=== PATIENT | female | born 1945 | race Caucasian/White ===

== ENCOUNTER → 2017-05-14 | Outpatient (CLI) | payer MEDICARE, OTHER ==
[~2017-05-14] MED LIST: ALPR-1 PO; ATOR20TA22 PO; DIOVAN PO; GLIM1TAB25 PO; IBU800 PO; LEVO-3 PO; LOR5 PO; MELO-149 PO; METF-410 PO; MULT-1 PO; VALS1TAB67 PO
--- NOTE | 2017-05-14 09:20 | EKG ---
FACILITY: [facility] - [place], [place] PATIENT NAME: NAZARIO HARVEY : [id number] MR: [id number] V: [id number] EXAM DATE: ORDERING PHYSICIAN: AMANDA LOMELI TECHNOLOGIST: LANEY Whitehead Reason : PREOP Blood Pressure : / mmHG Vent. Rate : 087 BPM Atrial Rate : 087 BPM P-R Int : 158 ms QRS Dur : 086 ms QT Int : 386 ms P-R-T Axes : 081 078 089 degrees QTc Int : 464 ms Normal sinus rhythm No ST abnormalities Large T waves diffusely, of unclear significance No previous ECGs available Confirmed by VINOD DAVENPORT ([id number]) on 05/14/2017 5:07:57 PM Referred By: ARMANI Confirmed By:VINOD DAVENPORT
== END ==
LOC: RESP 09:03
PROVIDERS: ATTEND Orthopaedic Surgery
DX: Z01.812 Encounter for preprocedural laboratory examination (principal); Z01.810 Encounter for preprocedural cardiovascular examination; M25.512 Pain in left shoulder; E11.9 Type 2 diabetes mellitus without complications; I10 Essential (primary) hypertension; E03.9 Hypothyroidism, unspecified; R41.9 Unspecified symptoms and signs involving cognitive functions and awareness
CPT/HCPCS: 93005

== ENCOUNTER → 2017-06-25 | Outpatient (CLI) | payer MEDICARE, OTHER ==
[~2017-06-25] MED LIST changes: +MULT-27 PO; +PRAM0.1225 PO
[2017-06-25 17:04] LABS: PLATELET COUNT, AUTOMATED 191 K/uL (150-450)
== END ==
LOC: LAB 16:36
PROVIDERS: ATTEND Family Medicine
DX: E61.1 Iron deficiency (principal)
CPT/HCPCS: 36415; 82728; 85025

== ENCOUNTER → 2017-07-24 | Outpatient (CLI) | payer MEDICARE, OTHER | LOC: RESP 20:57 | PROVIDERS: ATTEND Family Medicine | DX: Z02.9 Encounter for administrative examinations, unspecified (principal) ==

== ENCOUNTER → 2017-12-27 | Outpatient (CLI) | payer MEDICARE, OTHER ==
[~2017-12-27] MED LIST changes: -METF-410 PO; +METF-411 PO
--- NOTE | 2017-12-27 11:53 | RADIOLOGY IMAGING REPORT ---
FAC[place] [facility] [place]IENT NAME: NAZARIO HARVEY : [id number] MR: [id number] V: [id number] EXAM DATE: [id number] ORDERING PHYSICIAN: EPÑA CARLSON TECHNOLOGIST: Traci Olmstead PROCEDURE:BILATERAL DIGITAL SCREENING MAMMOGRAM WITH CAD ASSISTED INTERPRETATION & 3D TOMOSYNTHESIS COMPARISON:Prior mammograms 05/15/12. INDICATIONS:SCREENING/BREAST REDUCTION SURGERY FINDINGS: There is scattered fibroglandular tissue. Multiple bilateral round scattered benign microcalcifications are present which have increased in number. No suspicious mass, microcalcification or architectural distortion. No significant change when compared to prior. DIAGNOSTIC CATEGORY 2--BENIGN FINDING. RECOMMENDATIONS: ROUTINE MAMMOGRAM AND CLINICAL EVALUATION. IMPRESSION: BIRADS 2: Benign finding. Normal exam. Dictated by: Eddie Justice on 12/27/2017 at 11:05 Transcribed by: LUH on 12/27/2017 at 11:14 Approved by: Eddie Justice on 12/27/2017 at 11:52 [facility]
== END ==
LOC: MAMO 04:59
PROVIDERS: ATTEND Surgery
DX: Z12.31 Encounter for screening mammogram for malignant neoplasm of breast (principal); R92.1 Mammographic calcification found on diagnostic imaging of breast
CPT/HCPCS: 77063; 77067

== ENCOUNTER → 2018-01-10 | Outpatient (CLI) | payer MEDICARE, OTHER ==
[~2018-01-10] MED LIST changes: -METF-411 PO; +METF-450 PO
--- NOTE | 2018-01-10 12:46 | RADIOLOGY IMAGING REPORT ---
FACILITY: [facility] PATIENT NAME: Libertad Lo : 1945 MR: [id number] V: [id number] EXAM DATE: ORDERING PHYSICIAN: ZEE SWANSON TECHNOLOGIST: [place] [facility] [place]ad Lo : 1945 Visit/Account:[id number] Date of Sevice: 01/10/2018 BONE MINERAL DENSITY DEXA Scan Clinical history: Osteopenia. Comparison: None available. LUMBAR SPINE: The bone mineral density (BMD) measured from L1-L4 correlates with a Z-score 1.8 and a T-score of 1.0 which is Normal as defined by the World Health Organization. The corresponding risk of fracture in the lumbar spine is Not increased compared with a young adult reference population. HIP: Bone mineral density (BMD) measured in the Left total hip region correlates with a Z-score 1.8 and a T-score of 0.9 which is Normal as defined by the World Health Organization. The corresponding risk o f fracture in the hip is Not increased compared with a young adult reference population. Bone mineral density (BMD) measured in the Femoral Neck region measures 1.035 g/cm2. . T score of 0. 0. Normal Impression: 1. Lumbar spine: Normal. 2. Left Total Hip: Normal. 3. Femoral Neck: Bone Mineral Density is 1.035 g/cm2. Normal The next DEXA scan of this patient should include the following sites: L1-L4 and the left hip. FRAX? WHO Fracture Risk Assessment Tool link: <http://www.shef.ac.uk/FRAX/tool.jsp?locationValue=9> PLEASE NOTE: 1) The World Health Organization defines low BMD as follows: T-score Normal > -1 Osteopenia < -1 and > -2.5 Osteoporosis < -2.5 without fractures Established osteoporosis < -2.5 with fractures 2) In general, you may wish to consider: Diagnosis Treatment Follow-up DEXA Normal BMD Prevention 2-3 years Osteopenia Prevention/therapy 1-2 years Osteoporosis Therapy Yearly 3) Fracture risk estimated from the T-score is more accurate for vertebral fractures (often spontane ous) than for hip fractures. Report Dictated By: Bj Scott MD at 01/10/2018 12:40 PM Report E-Signed By: Bj Scott MD at 01/10/2018 12:42 PM WSN:[id number]
== END ==
LOC: RAD 03:07
PROVIDERS: ATTEND Family Medicine
DX: Z78.0 Asymptomatic menopausal state (principal)
CPT/HCPCS: 77080

== ENCOUNTER → 2018-01-15 | Outpatient (CLI) | payer MEDICARE, OTHER ==
--- NOTE | 2018-01-15 18:16 | EKG ---
FACILITY: [facility] - [place] PATIENT NAME: NAZARIO HARVEY : [id number] MR: [id number] V: [id number] EXAM DATE: ORDERING PHYSICIAN: PEÑA CARLSON TECHNOLOGIST: EDY Test Reason : PRE OP CLEARANCE Blood Pressure : / mmHG Vent. Rate : 090 BPM Atrial Rate : 090 BPM P-R Int : 158 ms QRS Dur : 086 ms QT Int : 388 ms P-R-T Axes : 066 040 075 degrees QTc Int : 474 ms Sinus rhythm Possible left atrial enlargement Nonspecific ST findings Somewhat tall T waves inferolateral leads Small Q waves inferolaterally Similar to previous Confirmed by EBENEZER DAVIS ([id number]) on 01/16/2018 6:21:44 AM Referred By: ROBYN Confirmed By:EBENEZER DAVIS
== END ==
LOC: LAB 15:41
PROVIDERS: ATTEND Surgery
DX: Z01.818 Encounter for other preprocedural examination (principal)
CPT/HCPCS: 36415; 82310; 82374; 82435; 82565; 82947; 84132; 84295; 84520

== ENCOUNTER 2018-02-13 00:38 | Day surgery (SDC) | payer MEDICARE, OTHER ==
[~2018-02-13] VITALS: Ht 175.3 cm; Wt 91.6 kg
[~2018-02-13 00:38] MED LIST changes: +CINN500C12 PO; +OMEG10007 PO
[2018-02-13] MEDS ORDERED: DEXAMETHASONE SOD 4 MG/ML VIAL ONE (08:35)
[2018-02-13] MEDS ORDERED: PROPOFOL EMUL(*) 10MG/ML 20 ML 20 ML ONE (08:35)
[2018-02-13] MEDS ORDERED: ONDANSETRON 4 MG/2 ML VIAL ONE (08:35)
[2018-02-13] MEDS ORDERED: METOCLOPRAMIDE 10 MG/2 ML SDV ONE (08:35)
[2018-02-13] MEDS ORDERED: LIDOCAINE MPF 1% 5 ML VIAL ONE (08:35)
[2018-02-13 08:45] LABS: PLATELET COUNT, AUTOMATED 156 K/uL (150-450)
[2018-02-13] MEDS ORDERED: fentaNYL CITR 100 MCG/2 ML AMP ONE (08:50)
[2018-02-13] MEDS ORDERED: PHENYLEPHRINE 10 MG/1 ML VIAL ONE (09:01)
[2018-02-13] MEDS ORDERED: ISOSULFAN BLUE 1% SLN 50MG/5ML ONE (09:02)
[2018-02-13] MEDS ORDERED: ROPIVACAINE 0.5% 20 ML VIAL ONE (09:03)
[2018-02-13 09:37] VITALS: BP 131/91
[2018-02-13] MEDS ORDERED: NORMOSOL R SOLN(*) 1000 ML BAG 1,000 ML IV PRN (10:25)
[2018-02-13] MEDS ORDERED: MIDAZOLAM 2 MG/2 ML VIAL IVP PRN (10:25)
[2018-02-13] MEDS ORDERED: FAMOTIDINE 20 MG TAB PO ONE (10:25)
[2018-02-13] MEDS ORDERED: LIDOCAINE/SOD BICARB 8.4% SYR ID ONE (10:25)
[2018-02-13] MEDS ORDERED: ceFAZolin(*) 2GM/D5W 50ML 50 ML IVPB ONE (10:25)
[2018-02-13] MEDS ORDERED: OXYC-854 PO (11:32)
[2018-02-13] MEDS ORDERED: DOCU-416 PO (11:32)
--- NOTE | 2018-02-13 11:40 | Short(Outpt) Discharge Summary ---
Discharge Summary Reason for Hosp/Final Diag: (1) Mass of right axilla Status: Chronic Hospital Course & Plan: Right axillary mass removed without problems. Departure Discharge to: Home, Self Care Discharge Instructions Home Meds Active Scripts Docusate Sodium (COLACE) 100 Mg Capsule, 1 CAP PO BID, #30 CAP 0 Refills TAKE WITH A FULL GLASS OF WATER Prov:PEÑA CARLSON MD 02/13/18 Oxycodone Hcl/Acet 5/325 Mg (ENDOCET 5-325 TABLET) 1 Each Tablet, 1-2 TAB PO Q4H PRN for PAIN, #30 TAB 0 Refills Prov:PEÑA CARLSON MD 02/13/18 Alprazolam 0.25 Mg Tab (XANAX 0.25 MG TAB) 0.25 Mg Tablet, 0.5 TAB PO DAILY PRN for ANXIETY for 30 Days, #10 TAB Prov:ZEE SWANSON MD 02/12/18 Glimepiride (GLIMEPIRIDE) 1 Mg Tablet, 1-2 TAB PO BID, #180 TAB 4 Refills Prov:ZEE SWANSON MD 02/12/18 Atorvastatin Calcium (LIPITOR) 20 Mg Tablet, 1 TAB PO QDAY, #90 TAB Prov:PEÑA CARLSON MD 01/06/18 Valsartan/Hydrochlorothiazide (DIOVAN HCT 160-12.5 MG TAB) 1 Each Tablet, 1 TAB PO DAILY for 90 Days, #90 TAB 4 Refills Prov:ZEE SWANSON MD 10/16/17 Pramipexole Di-Hcl (MIRAPEX) 0.125 Mg Tablet, 1 TAB PO QHS for 90 Days, #90 TAB 4 Refills two hours prior to bed Prov:ZEE SWANSON MD 07/23/17 Levothyroxine Sodium (LEVOTHYROXINE SODIUM) 100 Mcg Tablet, 1 TAB PO QDAY for 90 Days, #90 TAB 4 Refills Prov:ZEE SWANSON MD 06/11/17 Reported Medications Cinnamon Bark (CINNAMON) 500 Mg Capsule, 500 MG PO DAILY, CAPSULE 02/04/18 Ipava-3/Dha/Epa/Fish Oil (Fish Oil 1,000 mg Softgel) 1,000 Mg (120 Mg-180 Mg) Capsule, 1 TAB-CAP PO DAILY 02/04/18 Mu-Vits-Min Th/Lycopene/Lutein (CENTRUM SILVER TABLET) 1 Each Tablet, 1 TAB PO DAILY 05/17/17 Metformin Hcl (METFORMIN HCL) 500 Mg Tablet, 2 TAB PO BID, TAB 12/18/16 Follow up Referrals: General Surgery - 02/28/18 @ Surgery, General with PEÑA CARLSON MD You have a follow up appointment scheduled with Dr. Carlson on 02/28/18, at 12:30pm. Diet: Regular Activity: As Tolerated Special Instructions: You may remove the white surgical dressings on 02/15/18, then you can shower. After showering, leave the incision open to air but leave the steristrips in place until they fall off on their own. Do not immerse the incision for 2 weeks. Keep the taped gauze roll in you armpit as much as possible to minimize fluid build up in the surgical wound. If you need to, use the sling to keep your shoulder down to hold the taped gauze roll in place. Ideally, you could have the gauze roll in your armpit around the clock, other than while showering, for the first 2 weeks after surgery. PÑEA CARLSON MD Feb 13, 2018 11:40
--- NOTE | 2018-02-13 11:44 | Post Operative Progress Note ---
Post Operative Progress Note Date: Feb 13, 2018 Time: 11:41 Surgeon: Jin Dictation number: [id number] Anesthesia: LMA by Dr. Dueñas Pre-Op Diagnosis: Right axillary mass FH of breast cancer Post-Op Diagnosis: SMITH Findings: C/W dx Procedure(s): Right axillary mass excision Specimen Removed:(May be N/A): Right axillary mass Complications: None Fluids: See anesthesia record Estimated Blood Loss: Minimal Date OP Note Dictated: Feb 13, 2018 Time OP Note Dictated: 11:41 PEÑA CARLSON MD Feb 13, 2018 11:44
[2018-02-13 12:53] VITALS: BP 130/92
[2018-02-13 13:32] VITALS: BP 133/88
[2018-02-13 13:34] VITALS: BP 125/66
[2018-02-13] MEDS ORDERED: METF-450 PO (14:21)
--- NOTE | 2018-02-13 15:42 | OPERATIVE REPORT 1 ---
EVENT DATE: February 13, 2018 SURGEON: Noel Abdi MD ANESTHESIOLOGIST: Noel Dueñas MD ANESTHESIA: LMA. PREOPERATIVE DIAGNOSES 1. Right axillary mass. 2. Family history of breast cancer. POSTOPERATIVE DIAGNOSES 1. Right axillary mass. 2. Family history of breast cancer. PROCEDURE PERFORMED Excision of right axillary mass. COMPLICATIONS None. CONDITION Stable. BLOOD LOSS Minimal. INDICATIONS This is a 72-year-old female with a family history of breast cancer who has a mass in her right axilla, and she is requesting to have it removed to determine what it is. DESCRIPTION OF PROCEDURE The patient was brought to the operating room and placed supine on the operating table. Patient's right arm and axilla were prepped and draped in a sterile fashion. Timeout was completed. I then marked the skin overlying the mass and made an elliptical incision to encompass the skin overlying the mass. I then dissected through derm and subcutaneous fat. I dissected around the mass circumferentially, and I did not go into the axillary contents. It seemed to be all within the subcutaneous space. It was then passed off the field. The wound was made hemostatic with pressure, irrigated, and dried, and then I closed the pocket with interrupted 3-0 Vicryl sutures. The skin was closed with 3-0 Vicryl deep dermal interrupted sutures and 4-0 Monocryl running subcuticular suture. Skin was cleaned and dried, and Steri-Strips were applied, followed by sterile surgical dressing. I then rolled up Kerlix that I secured with tape to the axilla to apply external pressure to this area to hopefully prevent a seroma or hematoma. The patient was awakened and LMA removed. She was transported to the recovery room in stable condition having tolerated the procedure without any apparent problems. CAMMY
== END 2018-02-13 12:54 | disposition home or self-care (01) ==
LOC: OR 00:38
PROVIDERS: ATTEND Surgery
DX: R22.2 Localized swelling, mass and lump, trunk (principal); Z80.3 Family history of malignant neoplasm of breast; E11.9 Type 2 diabetes mellitus without complications
CPT/HCPCS: 36415; 36416; 38500; 82948; 85025; 88305; A9270; J1100; J2001; J2250; J2370; J2405; J2704; J2765; J2795; J3010; J0690; L3982; Q9968

== ENCOUNTER → 2018-09-24 | Outpatient (CLI) | payer MEDICARE, OTHER ==
[~2018-09-24] MED LIST changes: +BLOO-1503 MC; +CALC1TAB32 PO; +DOCU-416 PO; +LANC-1120 MC; +LOSA-51 PO; +OXYC-854 PO; +PRAM0.2524 PO; +SULF-198 PO; +TRAM-420 PO
[2018-09-24 11:16] LABS: PLATELET COUNT, AUTOMATED 197 K/uL (150-450)
--- NOTE | 2018-09-24 11:50 | EKG ---
FACILITY: [facility] - [place] PATIENT NAME: NAZARIO HARVEY : [id number] MR: [id number] V: [id number] EXAM DATE: ORDERING PHYSICIAN: SARINA ROJAS TECHNOLOGIST: MIN Test Reason : PREOP-KNEE Blood Pressure : / mmHG Vent. Rate : 081 BPM Atrial Rate : 081 BPM P-R Int : 156 ms QRS Dur : 084 ms QT Int : 402 ms P-R-T Axes : 056 023 072 degrees QTc Int : 466 ms Sinus rhythm Probable left atrial enlargement Small Q waves inferolateral leads Nonspecific ST findings Abnormal ECG Similar to previous EKG Confirmed by EBENEZER DAVIS ([id number]) on 09/24/2018 9:25:13 PM Referred By: CRYSTAL Confirmed By:EBENEZER DAVIS
== END ==
LOC: LAB 11:00
PROVIDERS: ATTEND Orthopaedic Surgery
DX: Z01.810 Encounter for preprocedural cardiovascular examination (principal); Z01.812 Encounter for preprocedural laboratory examination; M17.12 Unilateral primary osteoarthritis, left knee; R94.31 Abnormal electrocardiogram [ECG] [EKG]; B96.20 Unspecified Escherichia coli [E. coli] as the cause of diseases classified elsewhere
CPT/HCPCS: 36415; 81001; 82040; 82247; 82310; 82374; 82435; 82565; 82947; 83036; 84075; 84132; 84155; 84295; 84450; 84460; 84520; 85025; 87077; 87088; 87186; 93005

== ENCOUNTER 2018-10-13 01:36 | Observation (INO) | payer MEDICARE, OTHER ==
[2018-10-12 11:38] LABS: INR 0.98
[~2018-10-13] VITALS: Ht 175.3 cm; Wt 90.3 kg
[2018-10-13] VITALS (14 sets, daily range): BP systolic 111–150; BP diastolic 67–89
[2018-10-13] MEDS: LIDOCAINE/SOD BICARB 8.4% SYR ID ONE ×2 (05:31→08:01)
[2018-10-13] MEDS: FAMOTIDINE 20 MG TAB PO ONE ×2 (05:31→08:01)
[2018-10-13] MEDS: NORMOSOL R SOLN(*) 1000 ML BAG 1,000 ML IV PRN ×2 (05:31→08:00)
[2018-10-13] MEDS: CELECOXIB 200 MG CAP PO ONE ×2 (05:31→08:01)
[2018-10-13] MEDS: ACETAMINOPHEN 500 MG TAB PO ONE ×2 (05:31→08:01)
[2018-10-13] MEDS: PREGABALIN 75 MG CAPSULE PO ONE ×2 (05:31→08:01)
[2018-10-13] MEDS ORDERED: fentaNYL CITR 250 MCG/5 ML AMP ONE (08:10)
[2018-10-13] MEDS ORDERED: PROPOFOL EMUL(*) 10MG/ML 20 ML 20 ML ONE (08:11)
[2018-10-13] MEDS ORDERED: ONDANSETRON 4 MG/2 ML VIAL ONE (08:11)
[2018-10-13] MEDS ORDERED: LIDOCAINE MPF 1% 5 ML VIAL ONE (08:11)
[2018-10-13] MEDS ORDERED: DEXAMETHASONE SOD 4 MG/ML VIAL ONE (08:11)
[2018-10-13] MEDS ORDERED: KETAMINE HCL 200 MG/20 ML MDV ONE (08:18)
[2018-10-13] MEDS ORDERED: ROPIVACAINE 0.5% 20 ML VIAL ONE (08:24)
[2018-10-13] MEDS ORDERED: EPINEPHrine HCL 1 MG/ML AMP ONE (08:24)
[2018-10-13] MEDS ORDERED: NS 0.9% 20 ML SDV 20 ML ONE (08:24)
[2018-10-13] MEDS ORDERED: TRANEXAMIC AC 1000 MG/10ML SDV 1,000 MG in DEXTROSE 5% 50 ML BAG 50 ML IV ONE (08:55)
[2018-10-13] MEDS ORDERED: ceFAZolin(*) 2GM/D5W 50ML 50 ML IVPB ONE (08:55)
[2018-10-13] MEDS ORDERED: MIDAZOLAM 2 MG/2 ML VIAL IVP PRN (08:55)
[2018-10-13] MEDS ORDERED: ROPIVACAINE 0.2% 400 MG/200ML 250 ML CONINFUS ONE (08:55)
[2018-10-13] MEDS ORDERED: ROPIVACAINE/EPI/CLONIDINE/KET 50 ML SYRINGE INJ ONE (08:55)
[2018-10-13] MEDS ORDERED: ePHEDrine 25 MG/5 ML DISP.SYR IVP ONE (09:47)
[2018-10-13] MEDS ORDERED: hydrALAZINE HCL 20 MG/ML VIAL ONE (10:24)
[2018-10-13] MEDS ORDERED: LABETALOL HCL 100 MG/20ML VIAL ONE (10:40)
[2018-10-13] MEDS ORDERED: fentaNYL CITR 100 MCG/2 ML AMP ONE ×2 (11:58→12:43)
[2018-10-13] MEDS ORDERED: ZOLPIDEM TARTRATE 5 MG TAB PO PRN (12:30)
[2018-10-13] MEDS ORDERED: BISACODYL 10 MG SUPP PR PRN (12:30)
[2018-10-13] MEDS ORDERED: NORMOSOL R SOLN(*) 1000 ML BAG 1,000 ML IV PRN (12:30)
[2018-10-13] MEDS ORDERED: FLUSH 10 ML SYR IVP PRN (12:30)
[2018-10-13] MEDS ORDERED: MAGNESIUM HYDROXIDE* 30ML UDCP PO PRN (12:30)
[2018-10-13] MEDS ORDERED: MORPHINE 4 MG/ML SDV IVP PRN (12:30)
[2018-10-13] MEDS ORDERED: oxyCODONE HCL 5 MG CAP PO PRN (12:30)
[2018-10-13] MEDS ORDERED: ONDANSETRON 4 MG/2 ML VIAL IVP PRN (12:30)
[2018-10-13] MEDS ORDERED: PROMETHAZINE 25 MG/ML 1 ML AMP IVP PRN (12:30)
--- NOTE | 2018-10-13 12:34 | RADIOLOGY IMAGING REPORT ---
FACILITY: [facility] - [place] PATIENT NAME: Libertad Lo : 1945 MR: [id number] V: [id number] EXAM DATE: ORDERING PHYSICIAN: SARINA ROJAS TECHNOLOGIST: [place] [facility] [place] Libertad [place] : 1945 Visit/Account:[id number] Date of Sevice: 10/13/2018 Technique: KNEE LIMITED LEFT HISTORY: POST L TKA Comparison studies: None FINDINGS: There is no acute fracture. Present is a left knee arthroplasty. The alignment of the art hroplasty is preserved. Expected adjacent postoperative changes are noted. IMPRESSION: 1. Left knee arthroplasty without evidence of hardware complication. Report Dictated By: Tunde Shafer DO at 10/13/2018 12:27 PM Report E-Signed By: Tunde Shafer DO at 10/13/2018 12:28 PM WSN:[id number]
--- NOTE | 2018-10-13 13:51 | OPERATIVE REPORT 1 ---
EVENT DATE: October 13, 2018 SURGEON: Michael Mojica MD ANESTHESIOLOGIST: Lazarus Babb MD ANESTHESIA: Left adductor canal block with indwelling catheter followed by general anesthesia. We also utilized 50 cc of our standard Toradol/ropivacaine cocktail. DEVIL DOG: TITA Mishra, FINANCIAL SERVICE REPRESENTATIVE PREOPERATIVE DIAGNOSIS Left knee degenerative joint disease. POSTOPERATIVE DIAGNOSIS Left knee degenerative joint disease. PROCEDURE PERFORMED Left total knee arthroplasty. ESTIMATED BLOOD LOSS Less than 200 cc. SPECIMENS None. COMPLICATIONS None. IMPLANTS USED MicroPort medial pivot CS system with a 5 femur, 5 tibia, 14 mm CS insert, 8 x 29 symmetric patella. Femur cut 6-degrees valgus, 10 mm. DESCRIPTION OF PROCEDURE The patient received appropriate preoperative antibiotics, was brought to the OR where Dr. Babb performed left adductor canal block with indwelling catheter followed by general anesthesia. The left thigh tourniquet was placed, but was not utilized. The left lower extremity was prepped and draped in the usual sterile fashion. A midline incision was made followed by a medial parapatellar arthrotomy. Dissection was carried subperiosteally along the medial tibial plateau to the level of the semimembranosus insertion. Laterally, we excised a significant fat pad and scarring. We released the patella and everted this and brought knee up into flexion and released the suprapatellar pouch scar tissue. ACL and PCL were removed subperiosteally by Bovie. The remaining articular cartilage was removed from the distal femoral condyles by sagittal saw. Appropriate retractors were placed. A step-cut was utilized to broach the distal femoral canal. We placed our intramedullary distal femoral cutting guide, setting the block up at 10 mm, 6-degrees valgus and this cut was made. 3-degree external rotation guide and sizer was then placed, positioning referencing off the anterior flange, epicondyles, posterior condyles and we sized the femur to a #5 and the peg holes were drilled. Four-in-one cutting block was placed, followed by Z-retractors and then the cuts made. The tibial was brought anterior in the femur with appropriate retractors and the step-cut drill was utilized to broach the canal, followed by placement of the intramedullary guide. We referenced 10 mm off the least involved lateral tibial plateau and referenced for rotation, pinned the block into place with care taken to protect the soft tissue. We made our tibial cut and sized this to a #5. The stump of the ACL and PCL, medial and lateral meniscus removed by Bill. A trial tibial baseplate was positioned and pinned into place. We started with a 12 mm insert and then moved up to 14 and placed our #5 femur. With this combination we achieved full extension and flexion of 140-degrees. She was stable to varus and valgus stress, and at 90-degrees satisfactory drawer. The knee was brought up in full extension. The patella was sized to 20 mm in depth. Utilizing a 6 mm cutting guide, we made out cut and the patella was sized to a 32 x 8 and our peg hole guide was positioned. The peg hole was drilled and a trial placed. The knee was brought into flexion once again. Peg holes drilled, femur placed, and the trochlea cut for a chip which was then placed. Again, we had the aforementioned range of motion and stability and the patella tracked well. We removed the patella, femoral, and tibial inserts, brought the knee in flexion, placed appropriate retractors. Exposed the tibia, placed our cutting tower for a keel. This was cut, reamed, and punched and this was then removed. Bone plug placed in the distal femur. The knee was brought in full extension and copiously irrigated while we mixed 2 packages of [employer] [place] Blue cement. We then injected 10 cc of our cocktail in the posterior capsule, followed by placement of the knee in appropriate position. I cemented the tibia, followed by our 14 mm insert, then our #5 femur, and after excess cement was removed, the knee brought in full extension with axial compression, we cemented the patella. It took approximately 11 minutes for the cement to cure. While we were doing this, we had placed our remaining cocktail into the distal quad mechanism and had copiously irrigated with pulse lavage and utilized warm saline also to help cure the cement. We irrigated once again. The aforementioned range of motion and stability were noted. The knee was brought up into 30-degrees of flexion, arthrotomy closed with #2 Vicryl, followed by 2-0 Vicryl for subcutaneous tissues. With the knee bent at 45-degrees, our ZipLine wound closure system. Compressive dressing was applied. The patient was extubated and taken to recovery in stable condition. Hospitalist team consulted for medical management and anticoagulation. Physical Therapy for rehab. CAMMY
--- NOTE | 2018-10-13 14:43 | Hospitalist Consultation ---
History of Present Illness Requesting Physician Dr. Mojica Reason for Consult Medical Management of Comorbidities Chief Complaint s/p left knee replacement History of Present Illness She was admitted s/p left knee replacement. It is reported the surgery went well and without complication. History Problems: (1) Hypothyroidism Status: Chronic (2) Hypertension Status: Chronic (3) Hyperlipidemia Status: Chronic (4) Type 2 diabetes mellitus Status: Chronic Home Meds Active Scripts Tramadol Hcl (TRAMADOL HCL) 50 Mg Tablet, 0.5-1 TAB PO QDAY, #30 TAB Prov:ZEE SWANSON MD 09/24/18 Pramipexole Di-Hcl (MIRAPEX) 0.25 Mg Tablet, 0.25 MG PO QHS for 90 Days, #90 TAB 4 Refills Prov:ZEE SWANSON MD 09/24/18 Losartan/Hydrochlorothiazide (LOSARTAN-HCTZ 50-12.5 MG TAB) 1 Each Tablet, 1 EACH PO QDAY for 90 Days, #90 TAB 4 Refills Prov:ZEE SWANSON MD 07/28/18 Alprazolam 0.25 Mg Tab (XANAX 0.25 MG TAB) 0.25 Mg Tablet, 0.5 TAB PO DAILY PRN for ANXIETY for 30 Days, #10 TAB Prov:ZEE SWANSON MD 06/10/18 Glimepiride (GLIMEPIRIDE) 1 Mg Tablet, 2 TAB PO BID, #180 TAB 4 Refills Prov:ZEE SWANSON MD 05/06/18 Atorvastatin Calcium (LIPITOR) 20 Mg Tablet, 1 TAB PO QDAY, #90 TAB Prov:ZEE SWANSON MD 05/06/18 Blood Sugar Diagnostic (ACCU-CHEK BUBBA PLUS) 1 Each Strip, 1 EACH MC DAILY, #1 BOTTLE 4 Refills bottle of 100 plus 4 refills test glucose daily length of need: 99 months Prov:ZEE SWANSON MD 03/04/18 Lancets (ACCU-CHEK) 1 Each Each, EACH MC DAILY, #1 4 Refills box of 100 with 4 refills use 1 lancet daily length of need: 99 months Prov:ZEE SWANSON MD 03/04/18 Metformin Hcl (METFORMIN HCL) 500 Mg Tablet, 2 TAB PO BID for 90 Days, #360 TAB 4 Refills Prov:ZEE SWANSON MD 02/13/18 Levothyroxine Sodium (LEVOTHYROXINE SODIUM) 100 Mcg Tablet, 1 TAB PO QDAY for 90 Days, #90 TAB 4 Refills Prov:ZEE SWANSON MD 06/11/17 Reported Medications Calcium Carb & Cit/Vitamin D3 (CALCIUM + D3 ER TABLET) 1 Each Tablet.er, 1 TAB PO DAILY 09/24/18 Allergies: Coded Allergies: No Known Allergies (Verified Allergy, Unknown, 01/11/17) Patient History: Breast cancer in female Breast cancer in female FH: HTN (hypertension) MOTHER, FH: breast cancer BROTHER OR SISTER FH: diabetes mellitus MOTHER, Hx Smoking: Yes (quit 1972 smoked for 5 yrs 1/2 ppd) Smoking Status: Former Smoker Caffeine Intake: Coffee Caffeine/Cups Per Day: 1 Hx Alcohol Use: Yes Hx Substance Use Disorder: No Social Drug Use: Never Review of Systems All Systems Reviewed/Normal: Yes, Except as Noted Exam Vital Signs Vital Signs Date Time Temp Pulse Resp B/P (MAP) Pulse Ox O2 Delivery O2 Flow Rate FiO2 10/13/18 13:41 98.2 103 16 129/82 (98) 91 Nasal Cannula 3.0 General Appearance: Alert, Awake, No Acute Distress, Afebrile Neuro: No Gross deficits Cardiovascular: Regular Rate and Rhythm Respiratory: No Respiratory Distress, Clear to Auscultation GI: Abd Soft and Non-Tender Psych: Alert & Oriented X3, Appropriate Mood & Affect Assessment and Plan Problems: (1) Status post left knee replacement Status: Acute Assessment & Plan: Followed by Dr. Mojica. She will be placed on Aspirin for DVT prophylaxis. (2) Hypertension Status: Chronic Assessment & Plan: Continue chronic Losartan with hold parameters. Will hold HCTZ for now. (3) Type 2 diabetes mellitus Status: Chronic Assessment & Plan: She is on chronic treatment with Metformin and Glimepiride (hold for now). She will be placed on SS insulin #2, AC/ HS blood glucose, and ADA diet. (4) Hypothyroidism Status: Chronic Assessment & Plan: Continue chronic Levothyroxine. (5) Hyperlipidemia Status: Chronic Assessment & Plan: Continue chronic Atorvastatin. Venous Thromboembolism Antithrombotics Is Pt On Any Antithrombotics?: No BO CASASP Oct 13, 2018 14:43
--- NOTE | 2018-10-13 16:00 | NUR ---
Physical Therapy Impression Upon arrival, Pt had just finished walking back from the bathroom with nursing staff. As a result, mobility was not assessed during this session. Pt did not report any pain. Pt was left on CPM at 0-30 degrees. Education provided on adjusting range. Pt was left in bed with call light in reach and CPM on. Pt would benefit from further skilled PT care to ensure safe ambulation and educate on stair negotation. Physical Therapy Goals 1. Florentino bed mobility 2. Florentino transfer ability 3. Floretnino ambulation of 150 ft. with RW 4. Florentino ability to ascend/descend 6 stairs 5. Independent use of CPM machine Patient's Goals
--- NOTE | 2018-10-13 16:01 | NUR ---
This Physical Therapist or Family Lawyer was present for the entire physical therapy session directing the services, making the skilled judgement, and was not engaged in treating another patient or doing another task at the same time as the treatment session. Addendum: 10/13/18 at 1601 by DARIN BOWENS PT Amended: Links added.
[2018-10-13] MEDS: IBUPROFEN 200 MG TAB PO SCH (17:32)
[2018-10-13] MEDS: ACETAMINOPHEN 500 MG TAB PO SCH (17:32)
[2018-10-13] MEDS: ceFAZolin(*) 2GM/D5W 50ML 50 ML IVPB SCH (17:33)
[2018-10-13] MEDS: INSULIN HUM LISPRO 100 UN/ML 3 ML VIAL SUBQ PRN ×2 (17:34→21:54)
[2018-10-13] MEDS: PRAMIPEXOLE DIHYDROCHL 0.25 MG PO SCH (21:23)
[2018-10-13] MEDS: traMADol 50 MG TAB PO PRN (23:15)
[2018-10-14] MEDS: ACETAMINOPHEN 500 MG TAB PO SCH ×3 (01:22→17:40)
[2018-10-14] MEDS: IBUPROFEN 200 MG TAB PO SCH ×4 (01:23→18:30)
[2018-10-14] MEDS: ceFAZolin(*) 2GM/D5W 50ML 50 ML IVPB SCH ×2 (01:23→09:39)
[2018-10-14 04:00] VITALS: BP 124/73
[2018-10-14] MEDS: LEVOTHYROXINE SOD 0.1 MG TAB PO SCH (06:17)
[2018-10-14 07:04] VITALS: BP 126/77
[2018-10-14] MEDS: INSULIN HUM LISPRO 100 UN/ML 3 ML VIAL SUBQ PRN ×3 (08:03→20:43)
--- NOTE | 2018-10-14 08:38 | NUR ---
Patient is agreeable to therapy. Patient was on CPM and was shown how to change the degrees on her CPM and she changed them from 0 to 35 degrees with education to increase 5 degrees per day and to use at least 6 hours per day. Patient was SBA for bed mobs and transfers. Patient instructed in ambulation with FWW ~150 CGA to SBA with cuing for increased stance time on surgical leg. Patient then instructed in ascending and descending 4 stairs with B hand rail with step to gait x two reps with CGA. Patient performed in safe manner with proper technique. Patient left in bed with rails up and PCD on with call light. Physical Therapy Goals 1. Florentino bed mobility 2. Florentino transfer ability 3. Florentino ambulation of 150 ft. with RW 4. Florentino ability to ascend/descend 6 stairs 5. Independent use of CPM machine Patient's Goals
[2018-10-14] MEDS: LOSARTAN POTASSIUM 50 MG TAB PO SCH (09:00)
[2018-10-14] MEDS: ASPIRIN 325 MG ENTERIC COATED PO SCH (09:39)
[2018-10-14] MEDS: metFORMIN HCL 500 MG TAB PO SCH ×2 (09:39→20:44)
[2018-10-14] MEDS: GLIMEPIRIDE 2 MG TAB PO SCH ×2 (09:39→20:44)
[2018-10-14] MEDS: ATORVASTATIN 10 MG TAB PO SCH (09:40)
[2018-10-14 10:52] VITALS: Ht 175.3 cm; Wt 90.3 kg
[2018-10-14 11:38] VITALS: BP 136/70
--- NOTE | 2018-10-14 12:44 | Hospitalist Progress Note ---
Subjective Progress Notes Subjective She was admitted s/p knee replacement. She had no acute events overnight. Patient Complains of: Cardiovascular: No: Chest Pain Respiratory: No: Shortness of Breath Physical Exam Vital Signs Date Time Temp Pulse Resp B/P (MAP) Pulse Ox O2 Delivery O2 Flow Rate FiO2 10/14/18 11:38 98.9 91 10 136/70 (92) 91 Nasal Cannula 0.5 Intake and Output 10/14/18 01:01 Intake Total 2200 ml Output Total 600 ml Balance 1600 ml IV Total 2200 ml Output Urine Total 400 ml Estimated Blood Loss 200 ml # Voids 4 General Appearance: Alert, Awake, No Acute Distress, Afebrile Neuro: No Gross deficits Cardiovascular: Regular Rate and Rhythm Respiratory: No Respiratory Distress, Clear to Auscultation GI: Soft and Non-Tender Psych: Alert & Oriented X3, Appropriate Mood & Affect Assessment and Plan Problems: (1) Status post left knee replacement Status: Acute Assessment & Plan: Followed by Dr. Mojica. She will be placed on Aspirin for DVT prophylaxis. (2) Hypertension Status: Chronic Assessment & Plan: Continue chronic Losartan with hold parameters. Will hold HCTZ for now. (3) Type 2 diabetes mellitus Status: Chronic Assessment & Plan: She is on chronic treatment with Metformin and Glimepiride. She will be placed on SS insulin #2, AC/ HS blood glucose, and ADA diet. (4) Hypothyroidism Status: Chronic Assessment & Plan: Continue chronic Levothyroxine. (5) Hyperlipidemia Status: Chronic Assessment & Plan: Continue chronic Atorvastatin. Exam Sepsis Risk: No Definite Risk BO CASAS Oct 14, 2018 12:44
[2018-10-14 14:55] VITALS: BP 142/81
[2018-10-14] MEDS: traMADol 50 MG TAB PO PRN (16:25)
[2018-10-14 18:58] VITALS: BP 143/81
[2018-10-14] MEDS: PRAMIPEXOLE DIHYDROCHL 0.25 MG PO SCH (20:44)
[2018-10-14 23:44] VITALS: BP 138/77
[2018-10-15] MEDS: ACETAMINOPHEN 500 MG TAB PO SCH ×2 (00:43→09:48)
[2018-10-15] MEDS: IBUPROFEN 200 MG TAB PO SCH ×3 (00:43→12:00)
[2018-10-15 04:20] VITALS: BP 143/85
[2018-10-15] MEDS: LEVOTHYROXINE SOD 0.1 MG TAB PO SCH (05:51)
[2018-10-15 06:46] VITALS: BP 136/81
[2018-10-15] MEDS ORDERED: ASPI-764 PO (08:08)
[2018-10-15] MEDS: INSULIN HUM LISPRO 100 UN/ML 3 ML VIAL SUBQ PRN (08:16)
[2018-10-15 09:46] VITALS: BP 151/86
[2018-10-15] MEDS: metFORMIN HCL 500 MG TAB PO SCH (09:47)
[2018-10-15] MEDS: ATORVASTATIN 10 MG TAB PO SCH (09:48)
[2018-10-15] MEDS: GLIMEPIRIDE 2 MG TAB PO SCH (09:48)
[2018-10-15] MEDS: ASPIRIN 325 MG ENTERIC COATED PO SCH (09:48)
[2018-10-15] MEDS: LOSARTAN POTASSIUM 50 MG TAB PO SCH (09:48)
--- NOTE | 2018-10-15 10:16 | Hospitalist Progress Note ---
Subjective Progress Notes Subjective She was admitted s/p knee replacement. She had no acute events overnight. Patient Complains of: Cardiovascular: No: Chest Pain Respiratory: No: Shortness of Breath Physical Exam Vital Signs Date Time Temp Pulse Resp B/P (MAP) Pulse Ox O2 Delivery O2 Flow Rate FiO2 10/15/18 09:46 151/86 (107) 10/15/18 09:20 85 Room Air 10/15/18 06:46 97.8 83 20 0.5 Intake and Output 10/15/18 07:01 Intake Total 1080 ml Balance 1080 ml Intake Oral 1030 ml IV Total 50 ml # Voids 6 General Appearance: Alert, Awake, No Acute Distress, Afebrile Neuro: No Gross deficits Cardiovascular: Regular Rate and Rhythm Respiratory: No Respiratory Distress, Clear to Auscultation GI: Soft and Non-Tender Psych: Alert & Oriented X3, Appropriate Mood & Affect Assessment and Plan Problems: (1) Status post left knee replacement Status: Acute Assessment & Plan: Followed by Dr. Mojica. She will be placed on Aspirin for DVT prophylaxis. (2) Hypertension Status: Chronic Assessment & Plan: Continue chronic Losartan with hold parameters. Will hold HCTZ for now, she will resume at home. (3) Type 2 diabetes mellitus Status: Chronic Assessment & Plan: She is on chronic treatment with Metformin and Glimepiride. She will be placed on SS insulin #2, AC/ HS blood glucose, and ADA diet. (4) Hypothyroidism Status: Chronic Assessment & Plan: Continue chronic Levothyroxine. (5) Hyperlipidemia Status: Chronic Assessment & Plan: Continue chronic Atorvastatin. Exam Sepsis Risk: No Definite Risk [employer] Oct 15, 2018 10:16
[2018-10-15 11:13] VITALS: BP 141/90
--- NOTE | 2018-10-15 11:40 | NUR ---
This Physical Therapist or Instructor Of Education was present for the entire physical therapy session directing the services, making the skilled judgement, and was not engaged in treating another patient or doing another task at the same time as the treatment session. Addendum: 10/15/18 at 1140 by DARIN BOWENS PT Amended: Links added.
--- NOTE | 2018-10-15 13:32 | NUR ---
Physical Therapy Impression Pt tolerated ambulation well and had no reports of pain. Pt transfered sit<>stand with Florentino use of RW. Pt ambulated 200 ft with Florentino use of RW. Pt did not complain of any increased pain. Therex performed in reclining chair: ankle pumps, quad sets, and glut sets. Pt reported understanding of adjustment of CPM machine. Pt left in reclining chair with all needs met and call light in reach. Pt near all PT goals and safe to discharge when medically appropriate. Rec OP PT at discharge. Physical Therapy Goals 1. Florentino bed mobility 2. Florentino transfer ability 3. Florentino ambulation of 150 ft. with RW 4. Florentino ability to ascend/descend 6 stairs 5. Independent use of CPM machine Patient's Goals
--- NOTE | 2018-10-16 13:20 | DISCHARGE SUMMARY ---
DATE OF ADMISSION: October 13, 2018 DATE OF DISCHARGE: October 15, 2018. HISTORY OF PRESENT ILLNESS This is a 73-year-old female admitted to Day Surgery and underwent left total knee arthroplasty without complications. Postoperatively the hospital team was consulted for medical management and anticoagulation. She progressed well and on the day of discharge her wounds were clean, dry, and intact. She was neurovascularly intact and her pain was controlled. Once she is cleared by the hospitalist team and PT, she is a candidate for discharge to home with outpatient physical therapy, home [facility]. PRINCIPAL DIAGNOSIS Left knee degenerative joint disease. PRINCIPAL PROCEDURE Left total knee arthroplasty. [facility]
== END 2018-10-15 09:19 | disposition home or self-care (01) ==
LOC: OR 01:36 → MED 13:50
PROVIDERS: ADMIT Orthopaedic Surgery; ATTEND Orthopaedic Surgery
DX: M17.12 Unilateral primary osteoarthritis, left knee (principal)
CPT/HCPCS: 27447; 36415; 36416; 73560; 76942; 81001; 82948; 85610; 86850; 86900; 86901; 87077; 87088; 87186; 96372; 97110; 97116; 97161; 97530; A9270; C1713; C1776; G0378; J0171; J0360; J1100; J1815; J2001; J2250; J2405; J2704; J2795; J3010; J3490; J7030; J7050; J7060; J0690